=== PATIENT | male | born 2000 | race African-American/Black ===

== ENCOUNTER 2022-08-12 10:23 | Emergency (ER) | payer OTHER ==
[~2022-08-12] VITALS: Ht 172.7 cm; Wt 79.0 kg
[2022-08-12 10:37] VITALS: BP 0/0
== END 2022-08-12 10:54 | disposition home or self-care (01) ==
LOC: ER 10:23
DX: Z00.00 Encounter for general adult medical examination without abnormal findings (principal)
CPT/HCPCS: 99283